=== PATIENT | male | born 1990 | race Two or more races ===

== ENCOUNTER 2022-01-16 15:40 | Emergency (ER) | payer OTHER ==
[2022-01-16] MEDS ORDERED: Ketorolac 30 MG/ML SDV IM STA (17:46)
[2022-01-16] MEDS ORDERED: Diphtheria,Pertussis(Acell),Tetanus Vaccine 0.5 ML Syringe IM ONE (17:46)
== END 2022-01-16 20:02 | disposition home or self-care (01) ==
LOC: MW.ED 15:40
DX: S52.121A Displaced fracture of head of right radius, initial encounter for closed fracture (principal); S40.211A Abrasion of right shoulder, initial encounter; Z23 Encounter for immunization; W22.09XA Striking against other stationary object, initial encounter
CPT/HCPCS: 29105; 73080; 90471; 90715; 96372; 99283; J1885